=== PATIENT | female | born 1985 | race Two or more races ===

== ENCOUNTER 2023-02-24 20:24 | Emergency (ER) | payer OTHER ==
--- NOTE | 2023-02-24 21:58 | NUR ---
CALLED TO TRIAGE NO RESPONSE
--- NOTE | 2023-02-24 22:21 | NUR ---
CALLED TO TRIAGE NO RESPONSE
--- NOTE | 2023-02-24 23:15 | NUR ---
CALLED TO TRIAGE NO RESPONSE
[2023-02-25] MEDS ORDERED: CLOB118S TP (19:05)
[2023-02-25] MEDS ORDERED: PRED20TA PO (19:05)
[2023-02-25] MEDS ORDERED: KETO10DR3 EACHEYE (19:05)
== END 2023-02-24 23:56 | disposition left against medical advice (07) ==
LOC: ER 20:28
DX: Z53.21 Procedure and treatment not carried out due to patient leaving prior to being seen by health care provider (principal)

== ENCOUNTER 2023-02-25 18:38 | Emergency (ER) | payer OTHER ==
[~2023-02-25] VITALS: Ht 162.6 cm; Wt 86.6 kg
--- NOTE | 2023-02-25 18:45 | NUR ---
BIBS C/O SCALP ITCHINESS AND RASH X 4DAYS S/P USING HAIR DYE.
--- NOTE | 2023-02-25 18:50 | NUR ---
AT BEDSIDE FOR EVAL.
[2023-02-25] MEDS ORDERED: methylPREDNISolone SOD SUCC 125 MG/2ML VIAL IM ONE (19:00)
[2023-02-25] MEDS ORDERED: methylPREDNISolone SOD SUCC 125 MG/2ML VIAL ONE (19:03)
[2023-02-25] MEDS ORDERED: CLOB118S TP (19:05)
[2023-02-25] MEDS ORDERED: PRED20TA PO (19:05)
[2023-02-25] MEDS ORDERED: KETO10DR3 EACHEYE (19:05)
[2023-02-25 19:19] VITALS: BP 115/68
--- NOTE | 2023-02-25 19:19 | NUR ---
Patient discharged to home in stable condition. Written and verbal after care instructions given. Patient verbalizes understanding of instruction.
== END 2023-02-25 19:17 | disposition home or self-care (01) ==
LOC: ER 18:40
DX: R21 Rash and other nonspecific skin eruption (principal); L29.9 Pruritus, unspecified; T78.49XA Other allergy, initial encounter; X58.XXXA Exposure to other specified factors, initial encounter; Z98.890 Other specified postprocedural states; Z60.2 Problems related to living alone; Z79.899 Other long term (current) drug therapy
CPT/HCPCS: 99283; 96372; J2930

== ENCOUNTER 2023-07-19 16:59 | Emergency (ER) | payer OTHER ==
[~2023-07-19] VITALS: Ht 162.6 cm; Wt 86.2 kg
[~2023-07-19 16:59] MED LIST: CLOB118S TP; HYDR-500 PO; HYDR453.4 TP; KETO10DR3 EACHEYE; PRED20TA PO
[2023-07-19] MEDS ORDERED: PRED50TA PO (17:37)
[2023-07-19] MEDS ORDERED: diphenhydrAMINE HCL 50 MG CAPSULE ONE (17:49)
[2023-07-19] MEDS ORDERED: predniSONE 20 MG TABLET ONE (17:50)
[2023-07-19] MEDS ORDERED: CLOB15OI3 TP (17:54)
[2023-07-19] MEDS ORDERED: diphenhydrAMINE HCL 25 MG CAPSULE PO ONE (18:00)
[2023-07-19] MEDS ORDERED: predniSONE 50 MG TABLET PO ONE (18:00)
[2023-07-19] MEDS ORDERED: DIPH25CA83 PO (18:07)
[2023-07-19] MEDS ORDERED: PRED20TA PO (18:07)
[2023-07-19] MEDS ORDERED: CLOB118S TP (18:07)
[2023-07-19 18:43] VITALS: BP 123/66; TEMP 98.1; O2SAT 96
== END 2023-07-19 18:43 | disposition home or self-care (01) ==
LOC: ER 17:00
DX: L23.4 Allergic contact dermatitis due to dyes (principal); Z88.8 Allergy status to other drugs, medicaments and biological substances
CPT/HCPCS: 99283; Q0163; J7512